=== PATIENT | male | born 1970 | race Two or more races ===

== ENCOUNTER 2024-12-17 16:55 | Outpatient (REF) | payer BC, SELFPAY ==
[2024-12-17 21:39] LABS: Abs Immature Grans 0.01 10^3/uL (0.0-0.06); HCT 42.0 % (40.0-50.0); HGB 13.8 g/dL (13.5-17.5); Immature Grans % 0.2 %; MCH 28.3 pg (27.0-33.0); MCHC 32.9 % (32.0-36.0); MCV 86 fL (80-95); MPV 10.6 fL (8.0-11.0); Platelet Count 192 10^3/uL (130-400); RBC 4.88 10^6/uL (4.36-5.78); RDW 11.8 % (11.8-14.1); RDW-SD 36.8 fL; WBC 6.34 10^3/uL (4.4-10.8)
[2024-12-17 21:44] LABS: ALT 81 U/L (16-63); AST 47 U/L (15-37); Albumin 4.5 g/dL (3.4-5.0); Alkaline Phosphatase 95 U/L (46-116); Anion Gap 8.3 mmol/L (3-11); BUN 17 mg/dL (7-18); Bilirubin, Total 0.9 mg/dL (0.2-1.0); CO2 28.7 mmol/L (21.0-32.0); Calcium 9.6 mg/dL (8.5-10.1); Chloride 103 mmol/L (98-107); Estimated GFR 88.33 (mL/min/1.73m2); Glucose 139 mg/dL (74-106); Potassium 4.1 mmol/L (3.5-5.1); Sodium 140 mmol/L (136-145); Total Protein 8.3 g/dL (6.4-8.2)
[2024-12-20 12:09] LABS: Lyme Ab w Rflx to Lyme Confirm Positive (Negative)
[2024-12-20 13:54] LABS: Lyme IgG Ab Positive (Negative)
[2024-12-22 21:50] LABS: Babesia divergens/MO-1 Negative (Negative); Ehrlichia muris eauclairensis Negative (Negative)
[2024-12-23 10:27] LABS: B. miyamotoi PCR Positive (Negative)
== END 2024-12-17 16:56 | disposition home or self-care (01) ==
LOC: LBN 16:55
PROVIDERS: Visit Provider Registered Nurse
DX: W57.XXXA Bitten or stung by nonvenomous insect and other nonvenomous arthropods, initial encounter (principal); T14.90XA Injury, unspecified, initial encounter
CPT/HCPCS: 80053; 86617; 87798; 85025; 86618